=== PATIENT | female | born 1945 | race Caucasian/White ===

== ENCOUNTER 2022-10-10 14:40 | Emergency (ER) | payer OTHER, MEDICARE ==
[~2022-10-10] VITALS: Ht 158.8 cm; Wt 80.9 kg
[2022-10-10 14:58] VITALS: BP 155/97
[2022-10-10] MEDS ORDERED: cyclobenzaprine 10mg tablet PO ONE (20:00)
[2022-10-10] MEDS ORDERED: ORPH100T2 PO (20:00)
--- NOTE | 2022-10-10 20:10 | NUR ---
PO MED GIVEN
== END 2022-10-10 20:10 | disposition home or self-care (01) ==
LOC: ER 14:41
DX: S13.4XXA Sprain of ligaments of cervical spine, initial encounter (principal); R07.9 Chest pain, unspecified; Z88.2 Allergy status to sulfonamides; Z79.899 Other long term (current) drug therapy; V98.8XXA Other specified transport accidents, initial encounter; Y93.89 Activity, other specified; Y92.89 Other specified places as the place of occurrence of the external cause; Y99.8 Other external cause status
CPT/HCPCS: 71045; 99283